=== PATIENT | female | born 1995 | race African-American/Black ===

== ENCOUNTER 2016-05-03 11:23 | Emergency (ER) | payer OTHER ==
[~2016-05-03] VITALS: Ht 154.9 cm; Wt 93.4 kg
[~2016-05-03 11:23] MED LIST: AMOXICILLIN 50500 MG PO; IRON325; KEFLEX500 MG PO; MACROBID 100 M100 M2 PO; PRENATAL FORMU1 EAC1 PO
[2016-05-03 11:29] VITALS: BP 131/85
[2016-05-03] MEDS ORDERED: KEFLEX500 MG PO (11:57)
[2016-05-03] MEDS ORDERED: CENTANY30 GM TP (11:57)
== END 2016-05-03 12:34 | disposition home or self-care (01) ==
LOC: ER 11:23
DX: L01.01 Non-bullous impetigo (principal); F41.9 Anxiety disorder, unspecified

== ENCOUNTER 2016-05-10 11:46 | Emergency (ER) | payer OTHER ==
[~2016-05-10] VITALS: Ht 154.9 cm; Wt 90.7 kg
[~2016-05-10 11:46] MED LIST changes: +CENTANY30 GM TP
[2016-05-10 12:50] LABS: URINE BLOOD 3+ (Negative); URINE COLOR YELLOW; URINE GLUCOSE-RANDOM* NEGATIVE (Negative); URINE KETONES TRACE (Negative); URINE LEUKOCYTES-REFLEX 1+ (Negative); URINE PROTEIN (DIPSTICK) 1+ (Negative); URINE SPECIFIC GRAVITY 1.025 (1.003-1.035)
[2016-05-10 12:55] LABS: ICTOTEST (BILI CONFIRMATORY) Negative (Negative); URINE BILIRUBIN NEGATIVE (Negative)
[2016-05-10 12:59] LABS: ABSOLUTE NEUTROPHILS 2.2 thou/uL (1.4-8.2); BASOPHILS 1.1 % (0.0-2.0); EOSINOPHILS 0.6 % (0.0-3.0); HEMATOCRIT 37.7 % (37.0-47.0); HEMOGLOBIN 12.1 gm/dL (12.0-15.0); LYMPHOCYTES 45.7 % (24.0-44.0); MANUAL DIFF NO; MCH 24.4 pg (26.0-34.0); MCHC 32.1 g/dL (28.0-37.0); MONOCYTES 7.3 % (1.0-8.0); PLATELET COUNT 273 thou/uL (150-400); POLYS 45.3 % (36.0-66.0); RBC 4.96 mil/uL (4.20-5.00); RDW 21.5 % (10.5-14.5); WBC 4.8 thou/uL (4.0-11.0)
[2016-05-10 13:05] LABS: CALCIUM 9.1 mg/dL (8.5-10.1); CREATININE 0.9 mg/dL (0.6-1.3); POTASSIUM 3.4 mmol/L (3.5-5.1)
[2016-05-10 13:05] LABS: CASTS None Seen /LPF (None Seen); CRYSTALS None Seen /LPF (None Seen); SQUAMOUS >10 Many /LPF (0-3)
[2016-05-10 13:06] LABS: URINE RBC 3-10 Few /HPF (0-2); URINE WBC-REFLEX 6-15 Few /HPF (0-5)
[2016-05-10 15:26] VITALS: BP 99/72
[2016-05-10] MEDS ORDERED: KEFLEX500 MG PO (15:32)
== END 2016-05-10 15:39 | disposition home or self-care (01) ==
LOC: ER 11:46
PROVIDERS: Nurse Practitioner Family
DX: N39.0 Urinary tract infection, site not specified (principal); F41.9 Anxiety disorder, unspecified